=== PATIENT | female | born 1965 | race African-American/Black ===

== ENCOUNTER 2020-11-11 18:58 | Emergency (ER) | payer OTHER ==
[~2020-11-11] VITALS: Ht 182.9 cm; Wt 110.0 kg
[2020-11-11] MEDS ORDERED: ACETAMINOPHEN 325MG TABLET PO STA (19:41)
[2020-11-11] MEDS ORDERED: OLANZAPINE 5MG TABLET ODT PO ONE (19:45)
[2020-11-11] MEDS ORDERED: SODIUM CHLORIDE 0.9% 1,000 ML IV ONE (19:45)
[2020-11-11 20:40] LABS: BASOPHILS % 0.4 % (0.0-2.0); EOSINOPHILS % 0.7 % (0.0-5.0); HEMATOCRIT. 34.5 % (36.0-48.0); HEMOGLOBIN. 11.2 g/dL (12.0-16.0); LYMPHOCYTES % 7.4 % (20.0-50.0); MEAN CORPUSCULAR HEMOGLOBIN 27.3 pg (28.0-32.0); MEAN CORPUSCULAR VOLUME 84.1 fL (81.0-99.0); MONOCYTES % 7.2 % (2.0-8.0); NEUTROPHILS % 84.3 % (40.0-76.0); PLATELET 370 x1000/uL (130-400); RED BLOOD CELL COUNT 4.11 mill/uL (4.2-5.4); RED CELL DISTRIBUTION WIDTH 13.9 % (11.6-14.6)
[2020-11-11 20:44] LABS: CLARITY URINE TURBID (CLEAR); COLOR URINE DARK YELLOW (YELLOW); KETONES URINE TRACE (NEGATIVE); LEUKOCYTE ESTERASE URINE NEGATIVE (NEGATIVE); NITRITE URINE NEGATIVE (NEGATIVE); OCCULT BLOOD URINE TRACE (NEGATIVE); PROTEIN URINE 1+ (NEGATIVE); SPECIFIC GRAVITY URINE 1.036 (1.005-1.030)
[2020-11-11 20:48] LABS: CHLORIDE 107 mEq/L (98-107)
[2020-11-11 20:52] LABS: ETHANOL BLOOD < 10 mg/dL
[2020-11-11 21:06] LABS: *AMPHETAMINES SCREEN URINE NEGATIVE (NEGATIVE); *BARBITURATES SCREEN URINE NEGATIVE (NEGATIVE); *BENZODIAZEPINES SCREEN URINE NEGATIVE (NEGATIVE); *COCAINE SCREEN URINE NEGATIVE (NEGATIVE); METHADONE URINE SCREEN NEGATIVE (NEGATIVE)
[2020-11-11 21:07] LABS: CANNABINOID URINE SCREEN NEGATIVE (NEGATIVE); OPIATES URINE SCREEN NEGATIVE (NEGATIVE); PHENCYCLIDINE URINE SCREEN PRESUMTIVE POSITIVE (NEGATIVE)
[2020-11-11] MEDS ORDERED: CLIN300C12 MT (21:38)
[2020-11-11] MEDS ORDERED: CLINDAMYCIN HCL 150MG CAPSULE PO STA (21:38)
[2020-11-11 22:05] VITALS: BP 128/98
== END 2020-11-11 22:05 ==
LOC: ER 18:58
DX: S02.2XXA Fracture of nasal bones, initial encounter for closed fracture (principal); S03.00XA Dislocation of jaw, unspecified side, initial encounter; F19.129 Other psychoactive substance abuse with intoxication, unspecified; I10 Essential (primary) hypertension; Y08.89XA Assault by other specified means, initial encounter; Y93.89 Activity, other specified; Y92.149 Unspecified place in prison as the place of occurrence of the external cause; Z87.891 Personal history of nicotine dependence
CPT/HCPCS: 36415; 70450; 80053; 80305; 80307; 80320; 80329; 81003; 83690; 84484; 85025; 93005; 96360; 99285; J7030; G0480